=== PATIENT | female | born 1985 | race Caucasian/White ===

== ENCOUNTER 2016-08-06 21:53 | Emergency (ER) | payer SELFPAY ==
--- NOTE | ~2016-08-06 | ER ---
PATIENT'S NAME: [facility] AGE: 30 Y [address] ROOM: [place] [address] LOCATION: [facility] ADMIT DATE: 08/06/2016 ER/Outpatient Report DISCHARGE DATE: 08/06/2016 FAMILY PHYSICIAN: PHYSICIAN, NO ATTENDING PHYSICIAN: Sofiya Nathan TIME OF PATIENT ARRIVAL: 2153 hours. TIME OF PATIENT EVALUATION: 2200 hours. CHIEF COMPLAINT: Shortness of breath. HISTORY OF PRESENT ILLNESS: This is a 30-year-old female who presents to the ER. She states she has not been feeling well for the past 3 days. She states she has had a little bit of a sore throat and a cough that is productive of clear phlegm. She states she was running a fever of 102 degrees at home. She states that she had taken ibuprofen around 2 o'clock this afternoon, but has not taken anything else for her symptoms. ALLERGIES: NO KNOWN ALLERGIES. MEDICATIONS: Please see medication list, nurse's notes. PAST MEDICAL HISTORY: . SOCIAL HISTORY: She drinks alcohol rarely. Denies any smoking use. REVIEW OF SYSTEMS: A 10-point review of system was completed and was negative with the exception of those discussed in the HPI. PHYSICAL EXAMINATION: VITAL SIGNS: Height 5 feet 3 inches stated, weight 94.9 kg taken, blood pressure is 143/76, pulse 108, respirations 24, temperature is 99.1 with a temporal scanner, and saturation is 96% on room air. Cindy Coma Score is 15. GENERAL: Alert, calm, well-developed female, in no acute distress. PATIENT'S NAME: [facility] AGE: 30 Y [address] ROOM: [place] [address] LOCATION: [facility] ADMIT DATE: 08/06/2016 ER/Outpatient Report DISCHARGE DATE: 08/06/2016 FAMILY PHYSICIAN: PHYSICIAN, NO ATTENDING PHYSICIAN: Sofiya Nathan HEENT: Head: Normocephalic. Eyes: Pupils are equal and reactive to light. Ears: TMs are clear bilaterally. Nose: Turbinates pink, with purulent drainage. Throat: No exudates or erythema. She does have postnasal drip noted. LUNGS: Clear to auscultation bilaterally. No wheezes or crackles. She does have a harsh cough. HEART: Slightly tachycardic. Normal rhythm. No lifts, thrills, or murmurs. EXTREMITIES: No clubbing, cyanosis, or edema. She has full range of motion of all limbs. LABS AND X-RAYS: None were done. IMPRESSION: Sinusitis/bronchitis. ASSESSMENT AND PLAN: We will place the patient on a Z-Gus and albuterol inhaler to use as directed. She may use a decongestant over the counter. She needs to monitor symptoms, continue to push fluids, and take Tylenol or ibuprofen as needed for pain or for fever. She should follow up with her primary care physician if she does not improve. The patient understands and agrees with care. DANNIE MADDOX PA-C FOR MD CIRO SMITH/riya /[id number] d: t: 08/10/16 1502, OUTPATIENT REPORT
== END 2016-08-06 22:18 | disposition disaster alternative care site (69) ==
LOC: GMED 21:53
DX: J32.9 Chronic sinusitis, unspecified (principal); J40 Bronchitis, not specified as acute or chronic